=== PATIENT | female | born 2005 | race Caucasian/White ===

== ENCOUNTER 2025-06-06 16:46 | Emergency (ER) | payer OTHER ==
[~2025-06-06] VITALS: Ht 160 cm; Wt 52.2 kg
[2025-06-06 17:24] LABS: APPEARANCE,URINE CLEAR (CLEAR); BLOOD, URINE Negative Ery/uL (NEGATIVE); LEUKOCYTE ESTERASE ,URINE Small (NEGATIVE); UGLUCOSE Negative (NEGATIVE)
[2025-06-06 17:25] LABS: PREGNANCY TEST URINE QUAL NEGATIVE (NEGATIVE)
[2025-06-06 17:26] LABS: ADD URINE CULTURE YES; NITRITE, URINE NEGATIVE (NEGATIVE); SQUAMOUS EPITHELIAL CELL,UR Few /HPF (None Seen)
[2025-06-06 17:29] LABS: PLATELET COUNT (AUTO) 373 K/uL (150-450); RED BLOOD CELL COUNT(AUTO) 4.20 MIL/uL (4.0-5.2); RED CELL DISTRIBUTION WIDTH 14.3 % (11.5-15.0); WHITE BLOOD COUNT (AUTO) 9.3 K/uL (4.3-11.0)
[2025-06-06 17:43] LABS: CALCIUM, SERUM 9.1 mg/dL (8.5-10.1); CREATININE 0.7 mg/dL (0.6-1.3); SODIUM SERUM 136.0 mmol/L (136-145); UREA NITROGEN, BLOOD 10.0 mg/dL (7-18)
[2025-06-06 17:49] LABS: ASPARTATE AMINOTRANSFERASE 13.0 U/L (15-37); TOTAL PROTEIN, SERUM 8.0 g/dL (6.4-8.2)
[2025-06-06] MEDS ORDERED: ONDANSETRON HCL/PF 4 MG/2 ML VIAL ONE ×2 (17:56→20:14)
[2025-06-06] MEDS ORDERED: FAMOTIDINE/PF INJ 20 MG/2 ML VIAL IV ONE (17:56)
[2025-06-06] MEDS ORDERED: KETOROLAC TROMETHAMINE 15 MG/ML VIAL ONE (17:56)
[2025-06-06] MEDS ORDERED: ACETAMINOPHEN ES 500 MG TABLET ONE (17:56)
[2025-06-06] MEDS: FAMOTIDINE/PF INJ 20 MG/2 ML VIAL IV ONE (18:18)
[2025-06-06] MEDS: IV NS 0.9% 1,000 ML BAG IV ONE (18:18)
[2025-06-06] MEDS: ACETAMINOPHEN ES 500 MG TABLET PO ONE (18:19)
[2025-06-06] MEDS: ONDANSETRON HCL/PF 4 MG/2 ML VIAL IVP ONE (18:19)
[2025-06-06] MEDS: KETOROLAC TROMETHAMINE 15 MG/ML VIAL IV ONE (18:19)
[2025-06-06] MEDS ORDERED: IV NS 0.9% 250 ML IV ONE (18:26)
[2025-06-06] MEDS ORDERED: IOHEXOL-300 100 ML VIAL IV ONE (18:26)
[2025-06-06] MEDS ORDERED: ONDA4TAB5 PO (19:43)
[2025-06-06] MEDS: ONDANSETRON HCL/PF 4 MG/2 ML VIAL IV ONE (20:19)
[2025-06-06 20:20] VITALS: BP 118/72; TEMP 98; O2SAT 97
== END 2025-06-06 20:20 | disposition home or self-care (01) ==
LOC: ER 16:53
DX: R10.31 Right lower quadrant pain (principal); R11.0 Nausea; E06.3 Autoimmune thyroiditis; Z88.0 Allergy status to penicillin
CPT/HCPCS: 99285; 74177; 96374; 96375; 96361; 96376; 85025; 80048; 87086; 83690; 80076; 84703; 81001; 36415; J1885; J1308; J2405 ×2; J7030; J7050; Q9967